=== PATIENT | female | born 1960 | race Caucasian/White ===

== ENCOUNTER → 2018-08-23 | Outpatient (CLI) | payer OTHER ==
[~2018-08-23] MED LIST: ANAPROX DS550 MG PO; DARVOCET N 1001 TAB PO; KEFLEX500 MG PO; MOTRIN800 MG PO; ULTRAM50 MG PO
== END | disposition home or self-care (01) ==
LOC: RAD 07:53
DX: M25.512 Pain in left shoulder (principal)